=== PATIENT | female | born 1995 | race Caucasian/White ===

== ENCOUNTER 2016-08-18 17:16 | Emergency (ER) | payer BC ==
[~2016-08-18] VITALS: Ht 154.9 cm; Wt 99.4 kg
[~2016-08-18 17:16] MED LIST: ALPRAZOLAM0.25 M2 PO; FLUOXETINE HCL20 MG PO; METH54T PO; PAXIL40 MG PO; TRINESSA1 EACH PO; XANAX0.5 MG PO
[2016-08-18] MEDS ORDERED: PROZAC20 MG PO (17:30)
[2016-08-18] MEDS ORDERED: CLONIDINE HCL0.1 MG PO (17:30)
[2016-08-18] MEDS ORDERED: ZANTAC150 MG PO (17:31)
[2016-08-18] MEDS ORDERED: ADVIL200 MG PO (17:31)
[2016-08-18] MEDS ORDERED: GABAPENTIN400 MG PO (17:31)
[2016-08-18] MEDS ORDERED: ALPRAZOLAM0.5 MG PO (17:31)
[2016-08-18 17:46] LABS: HEMATOCRIT 42.3 % (36.0-46.0); MCH 27.5 PG (29.0-34.0); MCHC 33.1 G/DL (30.0-36.0); MCV 82.9 FL (83-99); MEAN PLAT.VOLUME 9.3 uM^3 (9.5-12.4); PLATELET COUNT 303 K/uL (156-360); RBC DIS.WIDTH-CV 13.2 % (11.8-14.6); RBC DIS.WIDTH-SD 40.3 % (39-53)
[2016-08-18 17:54] LABS: CHLORIDE 108 mEq/L (99-109); POTASSIUM 3.8 mEq/L (3.7-5.4); SODIUM 141 mEq/L (136-147)
[2016-08-18 17:56] LABS: GLUCOSE 88 mg/dL (70-99)
[2016-08-18 17:57] LABS: ANION GAP 13 MEQ/L (2-14)
[2016-08-18 17:59] LABS: SERUM ETHYL ALCOHOL < 10 mg/dL
[2016-08-18 18:00] LABS: GFR ESTIMATE (CALCULATED) > 59 mL/min/
[2016-08-18 18:01] LABS: UREA NITROGEN (BUN) 9 mg/dL (9-23)
[2016-08-18 18:09] LABS: QUANTITATIVE HCG < 4.0 MIU/ML
[2016-08-18 18:55] LABS: AMPHETAMINE NEGATIVE (500 ng/mL); BARBITURATES NEGATIVE (200 ng/mL); BENZODIAZEPINES PRESUMPTIVE POSITIVE (150 ng/mL); COCAINE NEGATIVE (150 ng/mL); INTERNAL CONTROLS VALID? YES; METHADONE NEGATIVE (200 ng/mL); METHAMPHETAMINE NEGATIVE (500 ng/mL); OPIATES (MORPHINE) NEGATIVE (100 ng/mL); OXYCODONE NEGATIVE (100 ng/mL); PHENCYCLIDINE NEGATIVE (25 ng/mL); PROPOXYPHENE NEGATIVE (300 ng/mL); THC CANNABINOIDS NEGATIVE (50 ng/mL); TRICYCLIC ANTIDEPRESSANTS NEGATIVE (300 ng/mL)
[2016-08-18 18:56] LABS: ADD MEDTOX COMMENT Y
[2016-08-18 19:35] LABS: BENZODIAZEPINES, URINE SCREEN POSITIVE (200 ng/mL)
[2016-08-18 20:45] VITALS: BP 130/83
== END 2016-08-18 20:49 ==
LOC: EME 17:16 → AMB 17:16
PROVIDERS: Emergency Medicine
DX: F32.9 Major depressive disorder, single episode, unspecified (principal); F40.01 Agoraphobia with panic disorder; R45.851 Suicidal ideations; M79.7 Fibromyalgia; S61.512A Laceration without foreign body of left wrist, initial encounter; X78.9XXA Intentional self-harm by unspecified sharp object, initial encounter; Y92.009 Unspecified place in unspecified non-institutional (private) residence as the place of occurrence of the external cause; Y99.8 Other external cause status; Y93.89 Activity, other specified; Z88.2 Allergy status to sulfonamides
CPT/HCPCS: 80048; 84702; 84999; 85027; 90837; 99281; 99285; G0480

== ENCOUNTER 2017-05-15 19:26 | Emergency (ER) | payer BC ==
[~2017-05-15] VITALS: Ht 154.9 cm; Wt 109.9 kg
[~2017-05-15 19:26] MED LIST changes: +ADVIL200 MG PO; +ALPRAZOLAM0.5 MG PO; +CLONIDINE HCL0.1 MG PO; +GABAPENTIN400 MG PO; +PROZAC20 MG PO; +ZANTAC150 MG PO
[2017-05-15 20:16] LABS: HEMATOCRIT 38.2 % (36.0-46.0); HEMOGLOBIN 12.9 G/DL (11.9-15.5); MCH 28.8 PG (29.0-34.0); MCHC 33.8 G/DL (30.0-36.0); MCV 85.3 FL (83-99); PLATELET COUNT 326 K/uL (156-360); RBC DIS.WIDTH-CV 12.3 % (11.8-14.6); RBC DIS.WIDTH-SD 38.5 % (39-53); RED BLOOD COUNT 4.48 M/uL (3.80-5.20); WHITE BLOOD COUNT 8.6 K/uL (4.1-10.2)
[2017-05-15 20:27] LABS: CHLORIDE 107 mEq/L (99-109); POTASSIUM 3.9 mEq/L (3.7-5.4); SODIUM 138 mEq/L (136-147)
[2017-05-15 20:28] LABS: D-DIMER ELISA < 150.00 ng/mLDDU (<230)
[2017-05-15 20:29] LABS: GLUCOSE 95 mg/dL (70-99)
[2017-05-15 20:33] LABS: CREATININE 0.7 mg/dL (0.6-1.3); GFR ESTIMATE (CALCULATED) > 59 mL/min/
[2017-05-15 20:34] LABS: UREA NITROGEN (BUN) 5 mg/dL (9-23)
[2017-05-15 20:40] LABS: TROP-I INTERPRETATION NEGATIVE; TROPONIN-I < 0.01 ng/mL (0.0-0.30)
[2017-05-15 20:42] LABS: QUANTITATIVE HCG < 4.0 MIU/ML
[2017-05-15 21:46] LABS: APPEARANCE CLEAR ((CLEAR)); BILIRUBIN NEGATIVE; BLOOD SMALL; COLOR YELLOW ((YELLOW)); GLUCOSE (STRIP) NEGATIVE; KETONES NEGATIVE; LEUKOCYTES NEGATIVE; NITRITE NEGATIVE; PROTEIN (STRIP) NEGATIVE; SPECIFIC GRAVITY 1.011 (1.000-1.030); UROBILINOGEN 0.2 MG/DL (0.2-1.0)
[2017-05-15 22:06] LABS: BACTERIA RARE /HPF; EPITHELIAL CELLS 2+ /HPF; MUCUS TRACE /LPF; RED BLOOD CELLS 0-5 /HPF (0-5); WHITE BLOOD CELLS 0-5 /HPF (0-5)
[2017-05-16 00:11] VITALS: BP 125/84
== END 2017-05-16 00:12 | disposition home or self-care (01) ==
LOC: EME 19:26
PROVIDERS: Physician Assistant
DX: F11.129 Opioid abuse with intoxication, unspecified (principal); F32.9 Major depressive disorder, single episode, unspecified; F43.10 Post-traumatic stress disorder, unspecified; F98.8 Other specified behavioral and emotional disorders with onset usually occurring in childhood and adolescence; F41.0 Panic disorder [episodic paroxysmal anxiety]; F41.9 Anxiety disorder, unspecified; F41.1 Generalized anxiety disorder; F17.200 Nicotine dependence, unspecified, uncomplicated; Z88.2 Allergy status to sulfonamides; Z88.8 Allergy status to other drugs, medicaments and biological substances
CPT/HCPCS: 71010; 80048; 81003; 84484; 84702; 85027; 85379; 93005; 99281; 99284